=== PATIENT | male | born 1940 | race Two or more races ===

== ENCOUNTER 2021-10-27 08:46 | Inpatient (IN) | payer MEDICAID, OTHER ==
[~2021-10-27] VITALS: Ht 162.6 cm; Wt 66.5 kg
[2021-10-27] MEDS ORDERED: AZITHROMYCIN 500MG/ 250ML 250 ML IV ONE (11:30)
[2021-10-27] MEDS ORDERED: cefTRIAXone 1GM/50ML D5W 50 ML IV ONE (11:30)
[2021-10-27 11:59] LABS: Basophils # (auto) 0 10 ^3/uL (0-0.2); Basophils % (auto) 0.3 % (0.0-2.0); Eosinophils # (auto) 0 10 ^3/uL (0-0.8); Eosinophils % (auto) 0.4 % (0.0-7.0); Hematocrit 38.3 % (41.0-53.0); Hemoglobin 13.5 g/dL (13.5-17.5); Lymphocytes # (auto) 0.5 10 ^3/uL (0.4-5.4); Lymphocytes % (auto) 4.6 % (10.0-50.0); Mean Corpuscular Hemoglobin 32.2 pg (28.0-32.0); Mean Corpuscular Hgb Conc. 35.3 g/dL (32.0-36.0); Mean Corpuscular Volume 91.3 fL (80.0-100.0); Monocytes # (auto) 0.9 10 ^3/uL (0-1.3); Monocytes % (auto) 8.4 % (0.0-12.0); Neutrophils # (auto) 8.7 10 ^3/uL (1.6-8.6); Neutrophils % (auto) 86.3 % (37.0-80.0); Nucleated Red Blood Cells % 0.1 %; Red Cell Distribution Width 13.1 % (11.8-14.3); White Blood Cell 10.1 10^3/uL (4.4-10.8)
[2021-10-27 12:35] LABS: Albumin 2.9 g/dL (3.4-5.0); Calcium 8.8 mg/dL (8.5-10.1); Potassium 4.2 mmol/L (3.5-5.1)
[2021-10-27 12:45] LABS: BUN/Creatinine Ratio 15.5; Bilirubin, Total 0.6 mg/dL (0.2-1.0); Total Protein 7.5 g/dL (6.4-8.2)
[2021-10-27 20:10] LABS: Urine Bacteria NONE SEEN /hpf (None Seen); Urine Blood TRACE /uL (Negative); Urine Mucus FEW (None Seen); Urine Specific Gravity 1.022 (1.001-1.035); Urine WBC 1 /hpf (0 - 3)
[2021-10-27] MEDS ORDERED: TEMAZEPAM 15 MG CAP PO PRN (21:15)
[2021-10-27] MEDS ORDERED: ONDANSETRON HCL 4 MG/2 ML VIAL IV PRN (21:15)
[2021-10-27] MEDS ORDERED: NITROGLYCERIN 0.4 MG SL TAB SL PRN (21:15)
[2021-10-27] MEDS ORDERED: MORPHINE SULFATE INJECTION 2 MG/ML SYRG IV PRN (21:15)
[2021-10-27] MEDS ORDERED: ACETAMINOPHEN 325 MG TAB PO PRN (21:15)
[2021-10-27] MEDS ORDERED: DexAMETHasone SOD PHOS 10MG/1ML VIAL INJ IV ONE (21:15)
[2021-10-27] MEDS: ASCORBIC ACID 500 MG TAB PO SCH (23:07)
[2021-10-28] MEDS ORDERED: REMDESIVIR PER PHARMACY 0 ML IV SCH (05:45)
[2021-10-28] MEDS ORDERED: ALBUTEROL SULF HFA 90MCG INH 200DOSE IN PRN (05:45)
[2021-10-28] MEDS ORDERED: cefTRIAXone 1GM/50ML D5W 50 ML IV SCH (09:00)
[2021-10-28] MEDS ORDERED: ENOXAPARIN SOD 40 MG/0.4 ML SYRINGE SC SCH (10:00)
[2021-10-28] MEDS ORDERED: AZITHROMYCIN 500MG/ 250ML 250 ML IV SCH (10:00)
[2021-10-28 10:07] LABS: Basophils # (auto) 0 10 ^3/uL (0-0.2); Basophils % (auto) 0.5 % (0.0-2.0); Eosinophils # (auto) 0 10 ^3/uL (0-0.8); Eosinophils % (auto) 0.4 % (0.0-7.0); Hematocrit 38.8 % (41.0-53.0); Hemoglobin 13.5 g/dL (13.5-17.5); Lymphocytes # (auto) 0.5 10 ^3/uL (0.4-5.4); Lymphocytes % (auto) 9.3 % (10.0-50.0); Mean Corpuscular Hemoglobin 31.7 pg (28.0-32.0); Mean Corpuscular Hgb Conc. 34.6 g/dL (32.0-36.0); Mean Corpuscular Volume 91.4 fL (80.0-100.0); Monocytes # (auto) 0.3 10 ^3/uL (0-1.3); Monocytes % (auto) 5.2 % (0.0-12.0); Neutrophils # (auto) 4.7 10 ^3/uL (1.6-8.6); Neutrophils % (auto) 84.6 % (37.0-80.0); Nucleated Red Blood Cells % 0.1 %; Red Blood Cells 4.25 10^6/uL (4.5-5.90); Red Cell Distribution Width 13.3 % (11.8-14.3); White Blood Cell 5.5 10^3/uL (4.4-10.8)
[2021-10-28 10:11] LABS: Potassium 3.9 mmol/L (3.5-5.1)
[2021-10-28 10:22] LABS: Albumin 2.7 g/dL (3.4-5.0); BUN/Creatinine Ratio 20.4; Bilirubin, Total 0.8 mg/dL (0.2-1.0); Calcium 9.1 mg/dL (8.5-10.1); Magnesium 3.4 mg/dL (1.6-2.6); Total Protein 7.6 g/dL (6.4-8.2)
[2021-10-28] MEDS: DexAMETHasone SOD PHOS 10MG/1ML VIAL INJ IV SCH (10:22)
[2021-10-28] MEDS: PANTOPRAZOLE 40 MG TAB PO SCH (10:22)
[2021-10-28] MEDS: ASCORBIC ACID 500 MG TAB PO SCH ×2 (10:22→22:22)
[2021-10-28] MEDS: ZINC SULFATE 220mg CAP or TAB PO SCH (10:22)
[2021-10-28] MEDS: ENOXAPARIN SOD 40 MG/0.4 ML SYRINGE SC SCH (10:22)
[2021-10-28] MEDS ORDERED: IOHEXOL 350 MG/ML 100ML IJ ONE (10:58)
[2021-10-28 14:30] VITALS: BP 130/74
[2021-10-28 19:00] VITALS: BP 119/66
[2021-10-28 20:00] VITALS: BP 119/66
[2021-10-28 22:00] VITALS: BP 119/66
[2021-10-28] MEDS ORDERED: ALBUTEROL SULF HFA 90MCG INH 200DOSE IN SCH (22:00)
[2021-10-28] MEDS: DOXYCYCLINE 100 MG TAB/CAP PO SCH (22:22)
[2021-10-29 05:00] VITALS: BP 125/68
[2021-10-29] MEDS ORDERED: ALBUTEROL SULF HFA 90MCG INH 200DOSE IN PRN (06:15)
[2021-10-29 09:00] VITALS: BP 129/64
[2021-10-29] MEDS: PANTOPRAZOLE 40 MG TAB PO SCH (09:00)
[2021-10-29] MEDS: DexAMETHasone SOD PHOS 10MG/1ML VIAL INJ IV SCH (09:00)
[2021-10-29] MEDS: ZINC SULFATE 220mg CAP or TAB PO SCH (09:00)
[2021-10-29] MEDS: ENOXAPARIN SOD 40 MG/0.4 ML SYRINGE SC SCH (09:01)
[2021-10-29] MEDS: ASCORBIC ACID 500 MG TAB PO SCH (09:01)
[2021-10-29] MEDS: DOXYCYCLINE 100 MG TAB/CAP PO SCH (09:01)
[2021-10-29 09:42] LABS: Basophils # (auto) 0 10 ^3/uL (0-0.2); Basophils % (auto) 0.1 % (0.0-2.0); Eosinophils # (auto) 0 10 ^3/uL (0-0.8); Hematocrit 39.4 % (41.0-53.0); Hemoglobin 13.5 g/dL (13.5-17.5); Lymphocytes # (auto) 0.7 10 ^3/uL (0.4-5.4); Lymphocytes % (auto) 4.7 % (10.0-50.0); Mean Corpuscular Hemoglobin 31.4 pg (28.0-32.0); Mean Corpuscular Hgb Conc. 34.3 g/dL (32.0-36.0); Mean Corpuscular Volume 91.6 fL (80.0-100.0); Monocytes # (auto) 0.8 10 ^3/uL (0-1.3); Monocytes % (auto) 5.5 % (0.0-12.0); Neutrophils # (auto) 12.6 10 ^3/uL (1.6-8.6); Neutrophils % (auto) 89.7 % (37.0-80.0); Red Cell Distribution Width 13.2 % (11.8-14.3); White Blood Cell 14.1 10^3/uL (4.4-10.8)
[2021-10-29 09:43] LABS: Albumin 2.7 g/dL (3.4-5.0); Calcium 9.7 mg/dL (8.5-10.1)
[2021-10-29 09:45] LABS: BUN/Creatinine Ratio 25.5
[2021-10-29 09:47] LABS: Bilirubin, Total 0.3 mg/dL (0.2-1.0); Total Protein 7.3 g/dL (6.4-8.2)
[2021-10-29 13:15] VITALS: BP_SYST 115; BP_SYST 133; BP_DIAS 68; BP_DIAS 70
[2021-10-29] MEDS ORDERED: DOX100T PO (16:13)
[2021-10-29] MEDS ORDERED: DEXA6TAB6 PO (16:13)
[2021-10-29] MEDS ORDERED: ALBUAER3 IN (16:13)
[2021-10-29 16:38] LABS: CRP High Sensitivity 5.71 mg/dL (< 0.3)
== END 2021-10-29 17:50 | disposition home health service (06) | DRG 177 ==
LOC: ER 08:46 → TELE 21:01 → TELE-WESTW 10-28 12:18
PROVIDERS: ADMIT Nurse Practitioner; ATTEND Internal Medicine
DX: U07.1 COVID-19 (principal); J12.82 Pneumonia due to coronavirus disease 2019; J96.01 Acute respiratory failure with hypoxia; E44.0 Moderate protein-calorie malnutrition; Z68.24 Body mass index [BMI] 24.0-24.9, adult
CPT/HCPCS: 36415; 71045; 71275; 80053; 81001; 82728; 83036; 83735; 83880; 84484; 85025; 85379; 86141; 87426; 93970; 94640; 96365; 96366; 96368; 96372; 96375; 96376; G0378; J0696; J1100

== ENCOUNTER 2025-04-25 15:31 | Inpatient (IN) | payer OTHER ==
[~2025-04-25] VITALS: Ht 157.5 cm; Wt 68.1 kg
[~2025-04-25 15:31] MED LIST: ACET500T58 PO; ALBUAER3 IN; AUG875T PO; CIPR1SUS8 OT; DEXA6TAB6 PO; DOX100T PO
[2025-04-25] MEDS: IBUPROFEN 600 MG TAB PO ONE (16:10)
--- NOTE | 2025-04-25 16:42 | ED.PDOC ---
SOB-HPI HPI Comments This is a 84 year old male presenting to the ED with chief complaint of SOB. Patient reports that he has been experiencing SOB with associated productive cough, fever, and general malaise since waking up this morning. Patient denies any chills, chest pain, back pain, headache, dizziness, or hemoptysis. Chief Complaint: Shortness of Breath Time Seen by MD: 16:39 Primary Care Provider: unknown Reviewed notes: Nurses Notes, Medications, Allergies Information Source: Patient Mode of Arrival: Ambulatory Severity: Moderate Timing: Hours Duration: Since onset Context: At Rest PE Risk Factors: None History of: None Prehospital treatment: None Modifying Factors: Nothing Associated Signs and Symptoms: Fever, Cough If cough with SOB: Productive Past Medical History PAST MEDICAL HISTORY: Denies Surgical History: Denies all surgeries Family History Family History: Reviewed,noncontributory to illness Social History Smoker: Non-Smoker Alcohol: Denies ETOH Use Drugs: Denies Drug Use Lives In: Home Constitutional: reports: fever, malaise; denies: chills, diaphoresis, fatigue, sweats, weakness, others EENTM: denies: blurred vision, double vision, ear bleeding, ear discharge, ear drainage, ear pain, ear ringing, eye pain, eye redness, hearing loss, mouth pain, mouth swelling, nasal discharge, nose bleeding, nose congestion, nose pain, photophobia, tearing, throat pain, throat swelling, voice changes, others Respiratory: reports: cough, shortness of breath; denies: hemoptysis, orthopnea, SOB at rest, SOB with excertion, stridor, wheezing, others Cardiovascular: denies: chest pain, dizzy spells, diaphoresis, Dyspnea on exertion, edema, irregular heart beat, left arm pain, lightheadedness, palpitations, PND, syncope, others Gastrointestinal: denies: abdomen distended, abdominal pain, blood streaked bowels, constipated, diarrhea, dysphagia, difficulty swallowing, hematemesis, melena, nausea, poor appetite, poor fluid intake, rectal bleeding, rectal pain, vomiting, others Genitourinary: denies: burning, dysuria, flank pain, frequency, hematuria, incontinence, penile discharge, penile sore, pain, testicle pain, testicle swelling, urgency, others Neurological: denies: dizziness, fainting, headache, left sided numbness, left sided weakness, numbness, paresthesia, pre-existing deficit, right sided numbness, right sided weakness, seizure, speech problems, tingling, tremors, weakness, others Musculoskeletal: denies: back pain, gout, joint pain, joint swelling, muscle pain, muscle stiffness, neck pain, others Integumetry: denies: bruises, change in color, change in hair/nails, dryness, laceration, lesions, lumps, rash, wounds, others Allergic/Immunocompromised: denies: Difficulty Healing, Frequent Infections, Hives, Itching, others Hematologic/Lymphatic: denies: anemia, blood clots, easy bleeding, easy bruising, swollen glands, others Endocrine: denies: excessive hunger, excessive sweating, excessive thirst, excessive urination, flushing, intolerance to cold, intolerance to heat, unexplained weight gain, unexplained weight loss, others Psychiatric: denies: anxiety, bipolar disorder, depression, hopeless, panic disorder, schizophrenia, sleepless, suicidal, others All Other Systems: Reviewed and Negative Physical Exam General Appearance: No Apparent Distress, Normal HEENT: Normal ENT Inspection, Pharynx Normal, TMs Normal Neck: Full Range of Motion, Non-Tender, Normal, Normal Inspection Respiratory: Chest Non-Tender, No Accessory Muscle Use, No Respiratory Distress, Other (Tachypneic, crackles bilaterally) Cardiovascular: No Edema, No JVD, No Murmur, No Gallop, Normal Peripheral Pulses, Tachycardia Breast Exam: Deferred Gastrointestinal: No Organomegaly, Non Tender, No Pulsatile Mass, Normal Bowel Sounds, Soft Genitalia: Deferred Pelvic: Deferred Rectal: Deferred Extremities: No calf tenderness, Normal capillary refill, Normal inspection, Normal range of motion, Non-tender, No pedal edema Musculoskeletal : Apperance: Normal Neurologic: Alert, 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 Was a procedure done?: No Differential Dx Differential Diagnosis: Asthma, CHF, COPD, Hyponatremia, Pneumonia, Pneumothorax X-Ray, Labs, Meds, VS Vital Signs Date Time Temp Pulse Resp B/P (MAP) Pulse Ox O2 Delivery O2 Flow Rate FiO2 04/25/25 17:34 99.5 92 18 124/59 (80) 97 99.5 04/25/25 17:34 92 18 97 Nasal Cannula* 1 24 04/25/25 16:10 100.7 04/25/25 16:09 96 04/25/25 15:57 16 97 Nasal Cannula 4.0 04/25/25 15:57 100.6 100 16 127/64 (85) 92 100.6 Lab Test 04/25/25 16:51 04/25/25 16:12 Range/Units White Blood Count 10.4 4.4-10.8 10^3/uL Red Blood Count 4.56 4.5-5.90 10^6/uL Hemoglobin 14.5 13.5-17.5 g/dL Hematocrit 42.3 41.0-53.0 % Mean Corpuscular Volume 92.7 80.0-100.0 fL Mean Corpuscular Hemoglobin 31.8 28.0-32.0 pg Mean Corpuscular Hemoglobin Concent 34.3 32.0-36.0 g/dL Red Cell Distribution Width 14.0 11.8-14.3 % Platelet Count 154 140-450 10^3/uL Mean Platelet Volume 8.7 6.9-10.8 fL Neutrophils (%) (Auto) 84.5 H 37.0-80.0 % Lymphocytes (%) (Auto) 6.6 L 10.0-50.0 % Monocytes (%) (Auto) 7.9 0.0-12.0 % Eosinophils (%) (Auto) 0.2 0.0-7.0 % Basophils (%) (Auto) 0.8 0.0-2.0 % Neutrophils # (Auto) 8.8 H 1.6-8.6 10 ^3/uL Lymphocytes # (Auto) 0.7 0.4-5.4 10 ^3/uL Monocytes # (Auto) 0.8 0-1.3 10 ^3/uL Eosinophils # (Auto) 0 0-0.8 10 ^3/uL Basophils # (Auto) 0.1 0-0.2 10 ^3/uL Nucleated Red Blood Cells 0.0 % Prothrombin Time 10.7 9.3-11.8 sec Prothrombin Time INR 1.01 0.9-1.15 Activated Partial Thromboplast Time 30.1 24.5-34.5 SEC Sodium Level 136 136-145 mmol/L Potassium Level 3.8 3.5-5.1 mmol/L Chloride Level 101 98-107 mmol/L Carbon Dioxide Level 24 20-31 mmol/L Anion Gap 11 5-15 Blood Urea Nitrogen 18 9-23 mg/dL Creatinine 1.23 0.700-1.30 mg/dL Glomerular Filtration Rate Calc 59 >90 mL/min BUN/Creatinine Ratio 14.6 10.0-20.0 Serum Glucose 203 H 74-106 mg/dL Lactic Acid Level 2.2 *H 0.4-2.0 mmol/L Calcium Level 10.0 8.7-10.4 mg/dL Total Bilirubin 0.8 0.2-1.0 mg/dL Aspartate Amino Transferase (AST) 24 13-40 U/L Alanine Aminotransferase (ALT) 18 7-40 U/L Alkaline Phosphatase 88 46-116 U/L Total Protein 6.7 5.7-8.2 g/dL Albumin 4.6 3.2-4.8 g/dL POC Glucose 197 H 70-106 mg/dl Current Medications Medications (Trade) Dose Ordered Sig/Herb Route Start Time Stop Time Status Last Admin Lactated Ringer's 1,850 ml @ 1,850 mls/hr ONCE ONCE IV 04/25/25 16:45 04/25/25 17:44 DC 04/25/25 17:50 Vancomycin HCl 200 ml @ 200 mls/hr ONCE ONCE IV 04/25/25 16:45 04/25/25 17:44 DC 04/25/25 18:01 Time of 1ST Reevaluation: 17:39 Reevaluation 1ST: Unchanged Patient Education/Counseling: Diagnosis, Treatment Family Education/Counseling: No Family Present SEPSIS Sepsis Screen Date sepsis recognized/suspect: Apr 25, 2025 Time Sepsis recognized/suspect: 8 Recent Procedure: No On Antibiotic Therapy: No Respiratory Rate >20: No Heart Rate >90: Yes Temp<36 C (96.8 F) or >38.3 C: No SBP <90 or MAP <65 mmHG: No New Acute Mental Status Change: No Is the patient on CPAP, BIPAP,: No Physician Orders Urinalysis (04/25/25 16:34) Chest Portable (04/25/25 16:34) Accucheck (04/25/25 16:34) Blood Culture (04/25/25 16:34) Cefepime 1gm/ 50ml (Maxipime 1gm/50ml) (04/25/25 22:00) Notify Md If Map <65 Or Bp<90 (04/25/25 16:34) If Map<65 Start Vasopressor (04/25/25 16:34) Sepsis Reassesment After Fluid (04/25/25 17:34) Electrocardigram (04/25/25 17:54) Vital Signs Date Time Temp Pulse Resp B/P (MAP) Pulse Ox O2 Delivery O2 Flow Rate FiO2 04/25/25 17:34 99.5 92 18 124/59 (80) 97 99.5 04/25/25 17:34 92 18 97 Nasal Cannula* 1 24 04/25/25 16:10 100.7 04/25/25 16:09 96 04/25/25 15:57 16 97 Nasal Cannula 4.0 04/25/25 15:57 100.6 100 16 127/64 (85) 92 100.6 Laboratory Tests Test 04/25/25 16:51 Lactic Acid Level 2.2 mmol/L (0.4-2.0) *H White Blood Count 10.4 10^3/uL (4.4-10.8) Medications Medications Dose Ordered Sig/Herb Route Start Time Stop Time Status Last Admin Dose Admin Ibuprofen 600 mg STK-MED ONCE PO 04/25/25 16:03 04/25/25 16:02 DC 04/25/25 16:10 Lactated Ringer's 1,850 ml @ 1,850 mls/hr ONCE ONCE IV 04/25/25 16:45 04/25/25 17:44 DC 04/25/25 17:50 Vancomycin HCl 200 ml @ 200 mls/hr ONCE ONCE IV 04/25/25 16:45 04/25/25 17:44 DC 04/25/25 18:01 Departure 1 Departure Time of Disposition: 18:16 (Patient presents with the acute respiratory distress patient likely septic. Patient requiring 4 L nasal cannula. We will empirically cover patient with fluids and antibiotics admit patient for further workup and expert consultation) Impression: Primary Impression: Acute hypoxic respiratory failure Additional Impressions: Sepsis Qualified Codes: A41.9 - Sepsis, unspecified organism; R65.20 - Severe sepsis without septic shock; J96.01 - Acute respiratory failure with hypoxia Shortness of breath Disposition: ADMITTED INPATIENT Admit to: Med Surg Condition: Serious Critical Care Note Critical Care Time?: Yes Critical care comment: Acute hypoxic respiratory failure Authorized and Performed by: Meme Garcia MD Total critical care time: Approximately 46 minutes Due to a high probability of clinically significant, life threatening deterioration, the patient required my highest level of preparedness to intervene emergently and I personally spent this critical care time directly and personally managing the patient. This critical care time included obtaining a hi story; examining the patient; pulse oximetry; ordering and review of studies; arranging urgent treatment with development of a management plan; evaluation of patient's response to treatment; frequent reassessment; and, discussions with other providers. This critical care time was performed to assess and manage the high probability of imminent, life-threatening deterioration that could result in multi-organ failure. It was exclusive of separately billable procedures and treating other patients and teaching time. Please see my other sections and the rest of the note for further information on patient assessment and treatment. Stability Stability form required: No Heart Score Heart Score: Heart Score Response (Comments) Value History N/A 0 EKG N/A 0 Age N/A 0 Risk Factors N/A 0 Troponin N/A 0 Total 0 I personally scribed for MEME GARCIA MD ([email or web address]) on 04/25/25 at 16:42. Electronically submitted by Eladio Leija ([email or web address]). MEME GARCIA MD Apr 25, 2025 16:42
[2025-04-25 17:03] LABS: Hematocrit 42.3 % (41.0-53.0); Hemoglobin 14.5 g/dL (13.5-17.5); Mean Corpuscular Hemoglobin 31.8 pg (28.0-32.0); Mean Corpuscular Volume 92.7 fL (80.0-100.0); Nucleated Red Blood Cells % 0.0 %
[2025-04-25 17:17] LABS: INR 1.01 (0.9-1.15); Partial Thromboplastin Time 30.1 SEC (24.5-34.5); Prothrombin Time 10.7 sec (9.3-11.8)
[2025-04-25 17:21] LABS: Alanine Aminotransferase 18 U/L (7-40); Albumin 4.6 g/dL (3.2-4.8); Alkaline Phosphatase 88 U/L (46-116); Anion Gap 11 (5-15); BUN/Creatinine Ratio 14.6 (10.0-20.0); Bilirubin, Total 0.8 mg/dL (0.2-1.0); Blood Urea Nitrogen 18 mg/dL (9-23); Calcium 10.0 mg/dL (8.7-10.4); Carbon Dioxide 24 mmol/L (20-31); Chloride 101 mmol/L (98-107); Glucose 203 mg/dL (74-106); Lactic Acid w/Reflex 2.2 mmol/L (0.4-2.0); Potassium 3.8 mmol/L (3.5-5.1); Sodium 136 mmol/L (136-145); Total Protein 6.7 g/dL (5.7-8.2)
[2025-04-25 17:34] VITALS: PULSE 92; RESP 18; O2SAT 97
--- NOTE | 2025-04-25 17:35 | DVH ---
CHEST RADIOGRAPH Indication: sob Technique: Single frontal view of the chest was obtained Comparison: CHEST PORTABLE on DOS: 10/29/21, CHEST PORTABLE on DOS: 10/27/21 FINDINGS: Lines and Tubes: None Lungs: No focal consolidation. Pleura: No effusion. No pneumothorax. Cardiomediastinal contours: Unremarkable Bones: No acute osseous abnormality. IMPRESSION: 1. No acute cardiopulmonary disease.
[2025-04-25] MEDS: LACTATED RINGER'S 1,850 ML IV ONE (17:50)
[2025-04-25] MEDS: VANCOMYCIN 1GM/200ML PM 200 ML IV ONE (18:01)
[2025-04-25] MEDS ORDERED: IPRATROPIUM BROM 0.5 MG/2.5ML INH SOL NEB PRN (20:30)
[2025-04-25] MEDS ORDERED: ONDANSETRON HCL 4 MG/2 ML VIAL IV PRN (20:30)
[2025-04-25] MEDS ORDERED: DEXTROSE (50%) 50ML SYRG IV PRN (20:45)
[2025-04-25] MEDS: IOHEXOL 350 MG/ML 100ML IJ ONE (21:33)
[2025-04-25] MEDS: SODIUM CHLORIDE 0.9% 1,000 ML IV SCH (21:33)
--- NOTE | 2025-04-25 22:00 | DVH ---
CTA Chest with intravenous contrast INDICATION: hypoxia COMPARISON: CT ANGIO CHEST CONTRAST on DOS: 10/28/21 TECHNIQUE: Multidetector spiral CTA of the chest was performed of the chest with intravenous contrast . PULMONARY ANGIOGRAPHY PROTOCOL was utilized using a bolus-tracking technique centered on the main p ulmonary artery. Axial, coronal and sagittal multiplanar and MIP reformats were performed. Radiation Dose : 1. Chest: CTDI volume is 19 mGy. Dose-length product is 703 mGy*cm The dose indicators for CT are the volume Computed Tomography (CT) Dose Index (CTDIvol) and the Dose Length Product (DLP), and are measured in units of mGy and mGy-cm, respectively. These indicators are not patient dose, but values generated from the CT scanner acquisition factors. The report includes radiation exposure data for exposures received during this examination. Findings: Pulmonary artery: No pulmonary embolism Lower neck: Normal thyroid. Lungs: Left lower lobe pneumonia. No pleural effusion or pneumothorax. Heart/Vascular Structures: Normal heart size. No pericardial effusion. Lymph Nodes: Mediastinal lymphadenopathy, likely reactive Pleura: No pleural effusion or significant pneumothorax. Musculoskeletal: No acute osseous abnormality. Soft tissues: Normal. Upper abdomen: Limited portions of the upper abdomen are unremarkable. IMPRESSION: 1. No pulmonary embolism. 2. Left lower lobe pneumonia 3. Mediastinal lymphadenopathy, likely reactive
[2025-04-25 22:08] VITALS: O2SAT 95
[2025-04-25 22:29] VITALS: BP 124/59; PULSE 70; RESP 16; TEMP 99.5; O2SAT 95
[2025-04-25] MEDS: ACCU-CHEK COMFORT CURVE STRIP VI SCH (23:05)
[2025-04-25] MEDS: InsuLIN REG 1unit/0.01ml Soln (100units/ml) SC SCH (23:05)
[2025-04-26] VITALS (15 sets, daily range): BP systolic 111–151; BP diastolic 48–73; PULSE 62–86; RESP 14–20; TEMP 97.6–97.9; O2SAT 92–99
[2025-04-26] MEDS: CEFEPIME 1GM/ 50ML 50 ML IV SCH (00:05)
--- NOTE | 2025-04-26 00:16 | DVHHP2 ---
Admitting Diagnosis: Acute respiratory failure with hypoxia, left lower lobe pneumonia History of Present Illness History Source: Patient, Family Exam Limitations: No limitations HPI Mr. Josh Mosher is an 84 year old male with a history of DMT2 who presents with a chief complaint of SOB. Patient reports that he has been experiencing SOB with associated productive cough, fever, and general malaise since waking up yesterday morning. Patient denies any chills, chest pain, back pain, headache, dizziness, or hemoptysis. Patient admitted for further evaluation. Home Meds Active Scripts Acetaminophen (Acetaminophen) 500 Mg Tab, 500 MG PO BID for 10 Days, #20 TAB 0 Refills Prov:AG LOVELL SHOP WELDER 03/28/23 Amoxicillin & Pot Clavulanate (AUGMENTIN TABLET) 875 Mg Tb, 875 MG PO BID for 7 Days, #14 TAB 0 Refills Prov:AG LOVELL SHOP WELDER 03/28/23 Ciprofloxacin-Dexamethasone (Ciprofloxacin/Dexamethaso 0.3-0.1 %) 1 Emily Emily, 1 EMILY OT BID for 7 Days, #1 KIT Prov:AG LOVELL SHOP WELDER 03/28/23 Dexamethasone (Decadron) 6 Mg Tab, 6 MG PO DAILY, #8 TAB Prov:SAMANTHA MCCLELLAND MD 10/29/21 Doxycycline Monohydrate (Doxycycline Monohydrate) 100 Mg Tab, 100 MG PO Q12HR, #12 TAB Prov:SAMANTHA MCCLELLAND MD 10/29/21 Albuterol Sulfate (VENTOLIN MDI) 90 Mcg Ih, 90 MCG IN Q4HPRN PRN, #1 INHALER Prov:SAMANTHA MCCLELLAND MD 10/29/21 Reported Medications [None] No Conflict Check 05/14/11 Past Medical History Cardiac: No pertinent Hx Pulmonary: No pertinent Hx Central Nervous System: No pertinent Hx GI: No pertinent Hx Hemotology/Oncology: No pertinent Hx Hepatobiliary: No pertinent Hx Psychiatric: No pertinent Hx Musculoskeletal: No pertinent Hx Rheumotologic: No pertinent Hx Infectious Disease: No peritnent Hx ENT: No pertinent Hx Renal/: No pertinent Hx Endocrine: NIDDM Dermatology: No pertinent Hx Patient Family History: Patient reports no known family medical history. Smoker: Quit Alocohol: None Drugs: None Lives with: With family Domestic Violence: Neg Review of Systems Constitutional: Chills, Fever, Malaise, Weakness Ears, Nose, & Throat: No symptom reported Eyes: No symptom reported Pulmonary/Respiratory: Dyspnea, Cough Cardiovascular: No symptom reported Gastrointestinal: No symptom reported Genitourinary: No symptom reported Musculoskeletal: No symptom reported Skin: No symptom reported Psychiatric: No symptom reported Endocrine: No symptom reported Hemotologic/Lymphatic: No symptom reported H&P Exam Vital Signs Vital Signs Date Time Temp Pulse Resp B/P (MAP) Pulse Ox O2 Delivery O2 Flow Rate FiO2 04/25/25 23:12 97.5 97 21 130/66 (87) 97 97.5 04/25/25 22:29 2.0 28 04/25/25 22:08 Nasal Cannula* General Appeara: Well developed, Well nourished, Normal Appearance Head Exam: Normal inspection Neck Exam: Normal inspection, Non-tender, Normal alignment Eye Exam: bilateral eye Normal inspection, bilateral eye PERRL, bilateral eye EOMI Ear Exam: bilateral ear Auricle normal Nasal Exam: Normal inspection Mouth: Normal Inspection Pulmonary/Respiratory: Normal inspection, Chest non-tender, Decreased breath sounds Cardiovascular/Chest: Normal inspection, Regular rate, Normal Rhythm Peripheral Pulses: 2+ dorsalis pedis (R), 2+ dorsalis pedis (L), 2+ Radial (R), 2+ Radial (L) Abdominal Exam: Normal bowel sounds, Soft Rectal Exam: Deferred Legs: bilateral leg non-tender, bilateral leg normal inspection, bilateral leg normal range of motion 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 Exam: Normal hearing, Normal speech, PERRL Motor/Sensory: Normal sensory function, Normal motor function Neuro/Mental St: Alert, Oriented Appearance: Appropriate appearance, Appropriate insight Eye contact/ Speech: Cooperative, Good eye contact, Normal speech Thoughts/Psych: Normal thought pattern Skin Exam: Normal inspection, Normal color, Warm/dry SEPSIS Sepsis Screen Date sepsis recognized/suspect: Apr 25, 2025 Time Sepsis recognized/suspect: 1733 Recent Procedure: No On Antibiotic Therapy: No Respiratory Rate >20: No Heart Rate >90: No Temp<36 C (96.8 F) or >38.3 C: No SBP <90 or MAP <65 mmHG: No New Acute Mental Status Change: No Is the patient on CPAP, BIPAP,: No Physician Orders Urinalysis (04/25/25 16:34) Chest Portable (04/25/25 16:34) Accucheck (04/25/25 16:34) Blood Culture (04/25/25 16:34) Cefepime 1gm/ 50ml (Maxipime 1gm/50ml) (04/25/25 22:00) Notify Md If Map <65 Or Bp<90 (04/25/25 16:34) If Map<65 Start Vasopressor (04/25/25 16:34) Sepsis Reassesment After Fluid (04/25/25 17:34) Electrocardigram (04/25/25 17:54) Rapid Influenza A&B (04/25/25 20:22) Dvh Inhouse Covid19 (04/25/25 20:22) Admit (04/25/25 20:22) [facility]Diabetes (04/26/25 Breakfast) Full Code (04/25/25 20:22) Stat Ekg For Chest Pain (04/25/25 20:22) Notify Md Of Changes From Base (04/25/25 20:22) Perfumer For 24 Hours (04/25/25 20:22) Emergency Dysrhythmia Protocol (04/25/25 20:22) Rhythm Strips Once Every Shift (04/25/25 20:22) Oxygen By Nasal Cannula (04/25/25 20:22) Ct Angio Chest Contrast (04/25/25 20:22) Sodium Chloride 0.9% (04/25/25 20:30) Ondansetron Hcl (Zofran) (04/25/25 20:30) Ipratropium Medneb (Atrovent Medneb) (04/25/25 20:30) Complete Blood Count (04/26/25 04:00) Lactic Acid W/ Reflex Order (04/26/25 04:00) Comprehensive Metabolic Panel (04/26/25 04:00) Glucose Blood (Accu-Chek Comfort Curve T (04/25/25 22:00) Insulin R (Human) (Insulin R) (04/25/25 22:00) Dextrose 50% Syringe (04/25/25 20:45) Enoxaparin Sodium (Lovenox) (04/26/25 10:00) Methylprednisolone Sod Succ (Solu Medrol (04/26/25 10:00) *Consult / (04/26/25 00:06) Vital Signs Date Time Temp Pulse Resp B/P (MAP) Pulse Ox O2 Delivery O2 Flow Rate FiO2 04/25/25 23:12 97.5 97 21 130/66 (87) 97 97.5 04/25/25 22:29 99.5 70 16 124/59 95 2.0 28 99.5 04/25/25 22:08 95 Nasal Cannula* 2 28 04/25/25 22:08 95 Nasal Cannula 2.0 04/25/25 17:34 99.5 92 18 124/59 (80) 97 99.5 04/25/25 17:34 92 18 97 Nasal Cannula* 1 24 04/25/25 16:10 100.7 04/25/25 16:09 96 Laboratory Tests Test 04/25/25 16:51 04/25/25 18:47 Lactic Acid Level 2.2 mmol/L (0.4-2.0) *H 1.9 mmol/L (0.4-2.0) White Blood Count 10.4 10^3/uL (4.4-10.8) Medications Medications Dose Ordered Sig/Herb Route Start Time Stop Time Status Last Admin Dose Admin Cefepime HCl 50 ml @ 12.5 mls/hr Q12HR IV 04/25/25 22:00 04/26/25 00:05 12.5 MLS/HR Diagnostic Test (Pha) 1 strip ACHS 04/25/25 22:00 04/25/25 23:05 1 STRIP Ibuprofen 600 mg STK-MED ONCE PO 04/25/25 16:03 04/25/25 16:02 DC 04/25/25 16:10 600 MG Lactated Ringer's 1,850 ml @ 1,850 mls/hr ONCE ONCE IV 04/25/25 16:45 04/25/25 17:44 DC 04/25/25 17:50 1,850 MLS/HR Vancomycin HCl 200 ml @ 200 mls/hr ONCE ONCE IV 04/25/25 16:45 04/25/25 17:44 DC 04/25/25 18:01 200 MLS/HR Labs/Xrays Labs Test 04/25/25 23:03 04/25/25 18:47 04/25/25 16:51 Range/Units POC Glucose 128 H 70-106 mg/dl Lactic Acid Level 1.9 0.4-2.0 mmol/L White Blood Count 10.4 4.4-10.8 10^3/uL Red Blood Count 4.56 4.5-5.90 10^6/uL Hemoglobin 14.5 13.5-17.5 g/dL Hematocrit 42.3 41.0-53.0 % Mean Corpuscular Volume 92.7 80.0-100.0 fL Mean Corpuscular Hemoglobin 31.8 28.0-32.0 pg Mean Corpuscular Hemoglobin Concent 34.3 32.0-36.0 g/dL Red Cell Distribution Width 14.0 11.8-14.3 % Platelet Count 154 140-450 10^3/uL Mean Platelet Volume 8.7 6.9-10.8 fL Neutrophils (%) (Auto) 84.5 H 37.0-80.0 % Lymphocytes (%) (Auto) 6.6 L 10.0-50.0 % Monocytes (%) (Auto) 7.9 0.0-12.0 % Eosinophils (%) (Auto) 0.2 0.0-7.0 % Basophils (%) (Auto) 0.8 0.0-2.0 % Neutrophils # (Auto) 8.8 H 1.6-8.6 10 ^3/uL Lymphocytes # (Auto) 0.7 0.4-5.4 10 ^3/uL Monocytes # (Auto) 0.8 0-1.3 10 ^3/uL Eosinophils # (Auto) 0 0-0.8 10 ^3/uL Basophils # (Auto) 0.1 0-0.2 10 ^3/uL Nucleated Red Blood Cells 0.0 % Prothrombin Time 10.7 9.3-11.8 sec Prothrombin Time INR 1.01 0.9-1.15 Activated Partial Thromboplast Time 30.1 24.5-34.5 SEC D-Dimer, Quantitative 0.25 0.0-0.49 mg/L FEU Sodium Level 136 136-145 mmol/L Potassium Level 3.8 3.5-5.1 mmol/L Chloride Level 101 98-107 mmol/L Carbon Dioxide Level 24 20-31 mmol/L Anion Gap 11 5-15 Blood Urea Nitrogen 18 9-23 mg/dL Creatinine 1.23 0.700-1.30 mg/dL Glomerular Filtration Rate Calc 59 >90 mL/min BUN/Creatinine Ratio 14.6 10.0-20.0 Serum Glucose 203 H 74-106 mg/dL Calcium Level 10.0 8.7-10.4 mg/dL Total Bilirubin 0.8 0.2-1.0 mg/dL Aspartate Amino Transferase (AST) 24 13-40 U/L Alanine Aminotransferase (ALT) 18 7-40 U/L Alkaline Phosphatase 88 46-116 U/L B-Type Natriuretic Peptide 57.40 0-100 pg/mL Total Protein 6.7 5.7-8.2 g/dL Albumin 4.6 3.2-4.8 g/dL Assessment/Plan Problem List: (1) Pneumonia (2) Acute hypoxic respiratory failure Plan This is an 84 yo male with known past medical history of diabetes mellitus type 2, previous cigarette smoker who presents to the hospital with shortness of breath, fevers, chills, generalized weakness. Patient found to have 1. Acute respiratory failure with hypoxia 2. Left lower lobe Pneumonia 3. DM type 2 Plan Admit Telemetry unit Pulmonology consultation, IV antibiotics, IV fluids , Bronchodilators, IV steroids Supplemental oxygen as needed to keep 02 saturations above 92% Glucose monitoring AC & HS coverage with mild dose regular insulin sliding scale Influenza A&B, COVID PCR Discussed all above with patient in ED, and with patient daughter over the phone. Both verbalized agreement and understanding of care plan. All questions were answered. Discussed with supervising MD. Plan discussed with: Patient, Daughter, Other Code Visit Code Visit Total Time (mins): [address] Apr 26, 2025 00:16 CLAU HARMON MD Apr 26, 2025 15:05
[2025-04-26] MEDS: IPRATROPIUM BROM 0.5 MG/2.5ML INH SOL NEB SCH (00:34)
[2025-04-26 02:21] LABS: COVID19 ANTIGEN SOFIA FIA NEGATIVE (NEGATIVE)
[2025-04-26 05:20] LABS: Hematocrit 39.2 % (41.0-53.0); Hemoglobin 13.6 g/dL (13.5-17.5); Mean Corpuscular Hemoglobin 32.5 pg (28.0-32.0); Mean Corpuscular Volume 93.7 fL (80.0-100.0); Nucleated Red Blood Cells % 0.0 %
[2025-04-26 05:44] LABS: Alanine Aminotransferase 15 U/L (7-40); Albumin 4.0 g/dL (3.2-4.8); Alkaline Phosphatase 69 U/L (46-116); Anion Gap 6 (5-15); BUN/Creatinine Ratio 16.0 (10.0-20.0); Bilirubin, Total 1.1 mg/dL (0.2-1.0); Blood Urea Nitrogen 17 mg/dL (9-23); Calcium 9.7 mg/dL (8.7-10.4); Carbon Dioxide 29 mmol/L (20-31); Chloride 106 mmol/L (98-107); Potassium 4.2 mmol/L (3.5-5.1); Sodium 141 mmol/L (136-145); Total Protein 5.8 g/dL (5.7-8.2)
[2025-04-26 05:47] LABS: Glucose 126 mg/dL (74-106)
--- NOTE | 2025-04-26 06:36 | ECG ---
[facility] Test Date: 2025-04-25 Test Time: 16:09:37 Pat Name: GIOVANNA CANAS Department: ed Room: 0277T Gender: M Drawer In: arlette : 1940 Requested By: MEME ALONZO Order Number: [id number] Reading MD: Dayron Ridley Measurements Intervals [place] Rate: 96 P: 56 AR: 174 QRS: 77 QRSD: 77 T: 58 QT: 333 QTc: 421 Interpretive Statements Sinus tachycardia Ventricular premature complex Electronically Signed On 05-02-2025 15:31:57 PDT by Dayron Ridley Please click the below link to view image of tracing.
[2025-04-26 09:23] LABS: Urine Protein, UAD Negative (Negative)
[2025-04-26] MEDS: methylPREDNISolone SOD SUCC 40 MG/ML VL IV SCH (09:39)
[2025-04-26] MEDS: ENOXAPARIN SOD 40 MG/0.4 ML SYRINGE SC SCH (09:41)
--- NOTE | 2025-04-26 17:07 | DVHINCON2 ---
Date of service: Apr 26, 2025 Referring Physician Flora Arguelles NP Reason for Consultation Shortness of breath History of Present Illness History Source: Patient Exam Limitations: No limitations HPI Patient is an 84-year old gentleman with a history of diabetes who presented with shortness of breath, cough and fever. Was seen in the emergency room where chest x-ray demonstrated left lower lobe pneumonia and he was started on IV antibiotics. Pulmonology was consulted to assist in management. Home Meds Active Scripts Acetaminophen (Acetaminophen) 500 Mg Tab, 500 MG PO BID for 10 Days, #20 TAB 0 Refills Prov:AG LOVELL NP 03/28/23 Amoxicillin & Pot Clavulanate (AUGMENTIN TABLET) 875 Mg Tb, 875 MG PO BID for 7 Days, #14 TAB 0 Refills Prov:AG LOVELL NP 03/28/23 Ciprofloxacin-Dexamethasone (Ciprofloxacin/Dexamethaso 0.3-0.1 %) 1 Emily Emily, 1 EMILY OT BID for 7 Days, #1 KIT Prov:AG LOVELL NP 03/28/23 Dexamethasone (Decadron) 6 Mg Tab, 6 MG PO DAILY, #8 TAB Prov:SAMANTHA MCCLELLAND MD 10/29/21 Doxycycline Monohydrate (Doxycycline Monohydrate) 100 Mg Tab, 100 MG PO Q12HR, #12 TAB Prov:SAMANTHA MCCLELLAND MD 10/29/21 Albuterol Sulfate (VENTOLIN MDI) 90 Mcg Ih, 90 MCG IN Q4HPRN PRN, #1 INHALER Prov:SAMANTHA MCCLELLAND MD 10/29/21 Reported Medications [None] No Conflict Check 05/14/11 Past Medical History Cardiac: No pertinent Hx Pulmonary: No pertinent Hx Central Nervous System: No pertinent Hx GI: No pertinent Hx Hemotology/Oncology: No pertinent Hx Hepatobiliary: No pertinent Hx Psychiatric: No pertinent Hx Musculoskeletal: No pertinent Hx Rheumotologic: No pertinent Hx Infectious Disease: No peritnent Hx ENT: No pertinent Hx Renal/: No pertinent Hx Endocrine: NIDDM Dermatology: No pertinent Hx Patient Family History: Patient reports no known family medical history. Review of Systems Constitutional: Fever Ears, Nose, & Throat: No symptom reported Eyes: No symptom reported Pulmonary/Respiratory: Dyspnea, Cough Cardiovascular: No symptom reported Gastrointestinal: No symptom reported Genitourinary: No symptom reported Musculoskeletal: No symptom reported Skin: No symptom reported Psychiatric: No symptom reported Endocrine: No symptom reported Hemotologic/Lymphatic: No symptom reported H&P Exam Vital Signs Vital Signs Date Time Temp Pulse Resp B/P (MAP) Pulse Ox O2 Delivery O2 Flow Rate FiO2 04/26/25 14:14 74 18 98 04/26/25 11:30 119/55 (76) 04/26/25 07:51 Nasal Cannula* 1 24 04/26/25 07:30 98.9 98.9 General Appeara: Well developed, Well nourished, Normal Appearance Head Exam: Normal inspection Neck Exam: Normal inspection, Non-tender, Normal alignment Eye Exam: bilateral eye Normal inspection, bilateral eye PERRL, bilateral eye EOMI Ear Exam: bilateral ear Auricle normal, bilateral ear Canal normal, bilateral ear TM normal Nasal Exam: Normal inspection Mouth: Normal Inspection Pulmonary/Respiratory: Decreased breath sounds Cardiovascular/Chest: Normal inspection Peripheral Pulses: 4+ Radial (R), 4+ Radial (L), 4+ Brachial (R), 4+ Brachial (L) Abdominal Exam: Normal bowel sounds Labs/Xrays Labs Test 04/26/25 11:50 04/26/25 08:50 04/26/25 04:17 04/26/25 00:15 Range/Units POC Glucose 178 H 70-106 mg/dl Urine Color Light-yellow Yellow Urine Clarity Clear Clear Urine pH 6.5 5.0-9.0 Urine Specific [place] 1.024 1.001-1.035 Urine Protein Negative Negative Urine Ketones Negative Negative Urine Blood Trace H Negative /uL Urine Nitrite Negative Negative Urine Bilirubin Negative Negative Urine Urobilinogen Normal Negative mg/dL Urine Leukocyte Esterase Negative Negative /uL Urine RBC 6 0 - 3 /hpf Urine Microscopic WBC < 1 0-3 /HPF Urine Squamous Epithelial Cells Few <5 /hpf Urine Bacteria None seen None Seen /hpf Urine Glucose Normal Normal mg/dL White Blood Count 14.1 #H 4.4-10.8 10^3/uL Red Blood Count 4.19 L 4.5-5.90 10^6/uL Hemoglobin 13.6 13.5-17.5 g/dL Hematocrit 39.2 L 41.0-53.0 % Mean Corpuscular Volume 93.7 80.0-100.0 fL Mean Corpuscular Hemoglobin 32.5 H 28.0-32.0 pg Mean Corpuscular Hemoglobin Concent 34.6 32.0-36.0 g/dL Red Cell Distribution Width 14.0 11.8-14.3 % Platelet Count 134 L 140-450 10^3/uL Mean Platelet Volume 8.5 6.9-10.8 fL Neutrophils (%) (Auto) 81.0 H 37.0-80.0 % Lymphocytes (%) (Auto) 7.6 L 10.0-50.0 % Monocytes (%) (Auto) 10.6 0.0-12.0 % Eosinophils (%) (Auto) 0.6 0.0-7.0 % Basophils (%) (Auto) 0.2 0.0-2.0 % Neutrophils # (Auto) 11.4 H 1.6-8.6 10 ^3/uL Lymphocytes # (Auto) 1.1 0.4-5.4 10 ^3/uL Monocytes # (Auto) 1.5 H 0-1.3 10 ^3/uL Eosinophils # (Auto) 0.1 0-0.8 10 ^3/uL Basophils # (Auto) 0 0-0.2 10 ^3/uL Nucleated Red Blood Cells 0.0 % Sodium Level 141 # 136-145 mmol/L Potassium Level 4.2 3.5-5.1 mmol/L Chloride Level 106 98-107 mmol/L Carbon Dioxide Level 29 20-31 mmol/L Anion Gap 6 5-15 Blood Urea Nitrogen 17 9-23 mg/dL Creatinine 1.06 0.700-1.30 mg/dL Glomerular Filtration Rate Calc 70 >90 mL/min BUN/Creatinine Ratio 16.0 10.0-20.0 Serum Glucose 126 H 74-106 mg/dL Lactic Acid Level 1.2 0.4-2.0 mmol/L Calcium Level 9.7 8.7-10.4 mg/dL Total Bilirubin 1.1 H 0.2-1.0 mg/dL Aspartate Amino Transferase (AST) 18 13-40 U/L Alanine Aminotransferase (ALT) 15 7-40 U/L Alkaline Phosphatase 69 46-116 U/L Total Protein 5.8 5.7-8.2 g/dL Albumin 4.0 3.2-4.8 g/dL SARS-CoV-2 Antigen (Rapid) Negative NEGATIVE Test 04/25/25 16:51 04/25/25 00:15 Range/Units Prothrombin Time 10.7 9.3-11.8 sec Prothrombin Time INR 1.01 0.9-1.15 Activated Partial Thromboplast Time 30.1 24.5-34.5 SEC D-Dimer, Quantitative 0.25 0.0-0.49 mg/L FEU B-Type Natriuretic Peptide 57.40 0-100 pg/mL Influenza Type A Antigen Negative Negative Influenza Type B Antigen Negative Negative Microbiology Date/Time Source Procedure Growth Status 04/25/25 16:51 Blood Blood Culture - Preliminary NO GROWTH AFTER 24 HOURS OF INCUBATION. Resulted Assessment/Plan Plan Impression Acute hypoxemic respiratory failure Left lower lobe pneumonia Mediastinal lymphadenopathy Dyspnea Fever Patient seen and examined Events Low oxygen requirements On 1liters nasal cannula Vital signs stable Labs and imaging reviewed CTA of the chest No pulmonary embolism. Left lower lobe pneumonia Mediastinal lymphadenopathy, likely reactive Management Supplemental oxygen Titrate to maintain sats 90% or above Incentive spirometry Broad spectrum antibiotics F/u cultures Bronchodilators Monitor renal function Monitor electrolytes Supplement as needed Otherwise supportive care DVT prophylaxis Plan discussed with: Patient ANGEL ESCALONA MD Apr 26, 2025 17:07
[2025-04-27] VITALS (12 sets, daily range): BP systolic 97–127; BP diastolic 52–69; PULSE 68–80; RESP 16–20; TEMP 97.6–98; O2SAT 92–100
[2025-04-27 07:22] LABS: Hematocrit 39.6 % (41.0-53.0); Hemoglobin 13.5 g/dL (13.5-17.5); Mean Corpuscular Hemoglobin 31.6 pg (28.0-32.0); Mean Corpuscular Volume 92.6 fL (80.0-100.0); Nucleated Red Blood Cells % 0.0 %
[2025-04-27 07:31] LABS: Anion Gap 9 (5-15); Carbon Dioxide 24 mmol/L (20-31); Sodium 141 mmol/L (136-145)
[2025-04-27 07:32] LABS: Calcium 9.8 mg/dL (8.7-10.4)
[2025-04-27 07:33] LABS: Chloride 108 mmol/L (98-107); Potassium 3.5 mmol/L (3.5-5.1)
[2025-04-27 07:38] LABS: Magnesium 2.2 mg/dL (1.6-2.6)
[2025-04-27 07:50] LABS: Glucose 190 mg/dL (74-106)
--- NOTE | 2025-04-27 10:28 | DVHPN2 ---
Progress Note - Dictate Date Seen: Apr 27, 2025 Medical Necessity Reason Pt with a Central, PICC or Fol: No vital signs Vital Sign Date Time Temp Pulse Resp B/P (MAP) Pulse Ox O2 Delivery O2 Flow Rate FiO2 04/27/25 09:00 97.6 74 20 127/69 (88) 94 97.6 04/27/25 06:12 Room Air 0.0 04/26/25 20:00 21 Total Intake and Output 04/26/25 04/26/25 04/27/25 15:00 23:00 07:00 Intake Total 225 ml 50 ml Balance 225 ml 50 ml medications Current Medications Medications Dose Ordered Sig/Herb Route Start Time Stop Time Status Last Admin Dose Admin Cefepime HCl 50 ml @ 12.5 mls/hr Q12HR IV 04/25/25 22:00 04/27/25 09:43 12.5 MLS/HR Sodium Chloride 1,000 ml @ 75 mls/hr [id number] IV 04/25/25 20:30 04/26/25 23:11 75 MLS/HR Ondansetron HCl 4 mg Q6HPRN PRN IV 04/25/25 20:30 Diagnostic Test (Pha) 1 strip ACHS 04/25/25 22:00 04/27/25 06:18 1 STRIP Insulin Human Regular ACHS SC 04/25/25 22:00 04/26/25 17:05 8 UNITS Dextrose 50 ml UD PRN IV 04/25/25 20:45 Enoxaparin Sodium 40 mg DAILY SC 04/26/25 10:00 04/27/25 09:46 40 MG Methylprednisolone Sodium Succinate 40 mg BID IV 04/26/25 10:00 04/27/25 09:45 40 MG Ipratropium [place] 0.5 mg Q6HR NEB 04/26/25 00:30 04/27/25 06:12 0.5 MG laboratory and microbiology Laboratory Tests 04/27/25 06:55 Test 04/27/25 06:55 Range/Units Serum Glucose 190 H 74-106 mg/dL Assessment/Plan Impression Acute hypoxemic respiratory failure Left lower lobe pneumonia Mediastinal lymphadenopathy Dyspnea Fever Patient seen and examined Events pt better no new complaints vs stable on room air ok to dc f/up with primary Plan discussed with: Patient ANGEL ESCALONA MD Apr 27, 2025 10:28
[2025-04-27 10:51] LABS: BUN/Creatinine Ratio 20.8 (10.0-20.0); Blood Urea Nitrogen 20 mg/dL (9-23)
[2025-04-27] MEDS ORDERED: EMPA1TAB PO (12:58)
[2025-04-27] MEDS ORDERED: PRED20TA2 PO (12:58)
[2025-04-27] MEDS ORDERED: ATOR10TA PO (12:58)
[2025-04-27] MEDS ORDERED: METF-371 PO (12:58)
[2025-04-27] MEDS ORDERED: AZIT500T66 PO (13:59)
[2025-04-27] MEDS ORDERED: CEFD300C2 PO (13:59)
--- NOTE | 2025-04-27 14:02 | DVHDS2 ---
Discharge Summary Date of Admission Apr 25, 2025 at 20:22 Date of Discharge: Apr 27, 2025 Labs/Diagnostic Data: Laboratory Results Test 04/27/25 06:55 04/26/25 21:13 04/26/25 08:50 04/26/25 04:17 White Blood Count 14.9 10^3/uL (4.4-10.8) Red Blood Count 4.27 10^6/uL (4.5-5.90) Hemoglobin 13.5 g/dL (13.5-17.5) Hematocrit 39.6 % (41.0-53.0) Mean Corpuscular Volume 92.6 fL (80.0-100.0) Mean Corpuscular Hemoglobin 31.6 pg (28.0-32.0) Mean Corpuscular Hemoglobin Concent 34.2 g/dL (32.0-36.0) Red Cell Distribution Width 14.0 % (11.8-14.3) Platelet Count 149 10^3/uL (140-450) Mean Platelet Volume 8.7 fL (6.9-10.8) Neutrophils (%) (Auto) 93.2 % (37.0-80.0) Lymphocytes (%) (Auto) 4.9 % (10.0-50.0) Monocytes (%) (Auto) 1.8 % (0.0-12.0) Eosinophils (%) (Auto) 0.0 % (0.0-7.0) Basophils (%) (Auto) 0.1 % (0.0-2.0) Neutrophils # (Auto) 13.9 10 ^3/uL (1.6-8.6) Lymphocytes # (Auto) 0.7 10 ^3/uL (0.4-5.4) Monocytes # (Auto) 0.3 10 ^3/uL (0-1.3) Eosinophils # (Auto) 0 10 ^3/uL (0-0.8) Basophils # (Auto) 0 10 ^3/uL (0-0.2) Nucleated Red Blood Cells 0.0 % Sodium Level 141 mmol/L (136-145) Potassium Level 3.5 mmol/L (3.5-5.1) Chloride Level 108 mmol/L (98-107) Carbon Dioxide Level 24 mmol/L (20-31) Anion Gap 9 (5-15) Blood Urea Nitrogen 20 mg/dL (9-23) Creatinine 0.96 mg/dL (0.700-1.30) Glomerular Filtration Rate Calc 79 mL/min (>90) BUN/Creatinine Ratio 20.8 (10.0-20.0) Serum Glucose 190 mg/dL (74-106) Calcium Level 9.8 mg/dL (8.7-10.4) Magnesium Level 2.2 mg/dL (1.6-2.6) POC Glucose 202 mg/dl (70-106) Urine Color Light-yellow (Yellow) Urine Clarity Clear (Clear) Urine pH 6.5 (5.0-9.0) Urine Specific [place] 1.024 (1.001-1.035) Urine Protein Negative (Negative) Urine Ketones Negative (Negative) Urine Blood Trace /uL (Negative) Urine Nitrite Negative (Negative) Urine Bilirubin Negative (Negative) Urine Urobilinogen Normal mg/dL (Negative) Urine Leukocyte Esterase Negative /uL (Negative) Urine RBC 6 /hpf (0 - 3) Urine Microscopic WBC < 1 /HPF (0-3) Urine Squamous Epithelial Cells Few /hpf (<5) Urine Bacteria None seen /hpf (None Seen) Urine Glucose Normal mg/dL (Normal) Lactic Acid Level 1.2 mmol/L (0.4-2.0) Total Bilirubin 1.1 mg/dL (0.2-1.0) Aspartate Amino Transferase (AST) 18 U/L (13-40) Alanine Aminotransferase (ALT) 15 U/L (7-40) Alkaline Phosphatase 69 U/L (46-116) Total Protein 5.8 g/dL (5.7-8.2) Albumin 4.0 g/dL (3.2-4.8) Test 04/26/25 00:15 04/25/25 16:51 04/25/25 00:15 SARS-CoV-2 Antigen (Rapid) Negative (NEGATIVE) Prothrombin Time 10.7 sec (9.3-11.8) Prothrombin Time INR 1.01 (0.9-1.15) Activated Partial Thromboplast Time 30.1 SEC (24.5-34.5) D-Dimer, Quantitative 0.25 mg/L FEU (0.0-0.49) B-Type Natriuretic Peptide 57.40 pg/mL (0-100) Influenza Type A Antigen Negative (Negative) Influenza Type B Antigen Negative (Negative) Other Laboratory Tests 04/27/25 06:55 Brief Hx & Hospital Course: This is an 84 yo male with known past medical history of diabetes mellitus type 2, previous cigarette smoker who presents to the hospital with shortness of breath, fevers, chills, generalized weakness. Patient found to have acute respiratory failure with a left adrenal pneumonia. Patient was given IV antibiotics. Pulmonary was consulted. Patient is currently on room air. Patient is being discharged under stable condition with the p.o. antibiotics with the home health home safety evaluation. Condition at Discharge: Stable Final Diagnosis/Problems List This is an 84 yo male with known past medical history of diabetes mellitus type 2, previous cigarette smoker who presents to the hospital with shortness of breath, fevers, chills, generalized weakness. Patient found to have 1. Acute respiratory failure with hypoxia 2. Left lower lobe Pneumonia 3. DM type 2 Discharge Disposition: Home with Health Services SNF Discharge Will this Physician continue t: No Discharge Instruct/Medications Diet: Cardiac 2g Na,low cholest Diet comment: 1800 ADA diet Activity: No Restrictions, As Tolerated Follow Up/Referral: Please follow up with the PCP in one week Follow up with Dr. Vinay Gallardo in two weeks with a repeat chest x-ray Medications: Cefdinir and azithromycin as prescribed. Scheduled Atorvastatin Calcium (Lipitor), 1 TAB PO QPM, (Reported) Azithromycin (Azithromycin), 1 TAB PO DAILY Cefdinir (Cefdinir), 1 CAP PO BID Empagliflozin (Jardiance), 10 MG PO DAILY, (Reported) Metformin Hydrochloride (Metformin Hcl), 850 MG PO DAILY, (Reported) Prednisone (Prednisone), 20 MG PO DAILY, (Reported) Discharge Statement: "Patient was advised to return to the ER or call 911 if any headaches, dizziness, shortness of breath, chest pain, abdominal pain, bleeding, fevers, or worsening of medical condition. Patient was counseled about treatment plan, medications, possible side effects, patientverbalized understanding. All questions were answered to the best of my ability. This discharge took greater then 30 minutes in planning, reviewing documentation, counseling the patient, and discussing with other team members." ASSESSMENT ASSESSMENT Assessment This is an 84 yo male with known past medical history of diabetes mellitus type 2, previous cigarette smoker who presents to the hospital with shortness of breath, fevers, chills, generalized weakness. Patient found to have 1. Acute respiratory failure with hypoxia 2. Left lower lobe Pneumonia 3. DM type 2 Date of Service: Apr 27, 2025 Billing Provider: CLAU HARMON MD Common Visit Codes: NOT BILLABLE CLAU HARMON MD Apr 27, 2025 14:02
[2025-04-27] MEDS ORDERED: AZITHROMYCIN 250 MG TAB PO ONE (14:15)
== END 2025-04-27 16:15 | disposition home health service (06) | DRG 189 ==
LOC: ER 15:31 → OVERFLOW 20:22 → TELE-WESTW 04-26 13:44
PROVIDERS: ADMIT Nurse Practitioner Family; ATTEND Nurse Practitioner Family
DX: J96.01 Acute respiratory failure with hypoxia (principal); J15.69 Pneumonia due to other Gram-negative bacteria; J15.9 Unspecified bacterial pneumonia; R65.11 Systemic inflammatory response syndrome (SIRS) of non-infectious origin with acute organ dysfunction; E11.9 Type 2 diabetes mellitus without complications; Z20.822 Contact with and (suspected) exposure to COVID-19; R59.0 Localized enlarged lymph nodes; Z87.891 Personal history of nicotine dependence; Z79.84 Long term (current) use of oral hypoglycemic drugs
CPT/HCPCS: 36415; 71045; 71275; 80048; 80053; 81001; 82962; 83605; 83735; 83880; 85025; 85379; 85610; 85730; 87040; 87426; 87804; 93005; 94640; 96365; 99291; G0378; J1815